=== PATIENT | female | born 1975 | race Two or more races ===

== ENCOUNTER 2016-03-13 19:14 | Emergency (ER) | payer MEDICAID ==
[2016-03-13] MEDS ORDERED: MAALOX/LIDO2%VISC/SIMETHICONE 40 ML BOT ONE (21:43)
[2016-03-13] MEDS ORDERED: SUCRALFATE 1 G/10 ML DOSE ONE (22:07)
[2016-03-13] MEDS ORDERED: MAGNESIUM HYDROXIDE 30 ML UDCUP ONE (22:08)
[2016-03-13] MEDS ORDERED: KETOROLAC TROMETHAMINE 60 MG/2 ML VIAL ONE (22:25)
== END 2016-03-13 22:43 | disposition home or self-care (01) ==
LOC: ED 19:14
DX: R07.89 Other chest pain (principal); K29.70 Gastritis, unspecified, without bleeding; K22.4 Dyskinesia of esophagus; F41.9 Anxiety disorder, unspecified
CPT/HCPCS: 99283 ×2; 96372; A9270 ×3; J1885

== ENCOUNTER 2016-05-01 13:54 | Emergency (ER) | payer MEDICAID ==
[2016-05-01 15:29] LABS: ABSOLUTE NEUTROPHIL COUNT 5.8 K/mm3 (1.8-7.7); BASO # 0.1 K/mm3 (0.0-0.2); BASO % 0.8 % (0.2-1.0); EOS # 0.1 (0.0-0.5); EOS % 1.3 % (0.9-2.9); HEMOGLOBIN 12.2 gm/l (12.0-16.0); IMM NEUT% 0.2 % (0-1); LYMPH # 1.7 (1.0-4.8); LYMPH % 20.2 % (15-45); MEAN CELL VOLUME 82.6 fl (81.0-99.0); MEAN CORPUSCULAR HEMOGLOBIN 27.2 pg (27.0-31.0); MEAN PLATELET VOLUME 9.7 fl (7.4-10.4); MONO # 0.7 (0.0-0.8); MONO % 8.5 % (4-12); PLATELET COUNT 342 K/mm3 (130-400)
[2016-05-01 15:41] LABS: SPECIFIC GRAVITY 1.015 (1.001-1.030); URINE BILIRUBIN NEGATIVE (NEGATIVE); URINE BLOOD 2+ (NEGATIVE); URINE GLUCOSE (UA) NEGATIVE (NEGATIVE); URINE LEUKOCYTE ESTERASE NEGATIVE (NEGATIVE); URINE NITRITE NEGATIVE (NEGATIVE); URINE PROTEIN NEGATIVE (NEGATIVE); URINE UROBILINOGEN NORMAL (0-1 mg/dl)
[2016-05-01 15:42] LABS: URINE APPEARANCE CLEAR; URINE COLOR YELLOW
[2016-05-01 15:52] LABS: URINE BACTERIA 0; URINE EPITHELIAL CELLS FEW /hpf; URINE WBC 0-1 /hpf
--- NOTE | 2016-05-01 16:22 | US ---
Clinical History: Pelvic pain for one week with bleeding. Comparison: None Findings: Multiple grayscale, color-flow and duplex Doppler images during transabdominal and transvaginal pelvic ultrasound are obtained. An early intrauterine is identified. Mean sac diameter is 1.5 cm, for gestational age of 5 weeks and 5 days. No pole or yolk sac is identified. Mean gestational age is 5 weeks and 5 days. Estimated date of delivery is 12/27/2016. heart tones are not identified at this time. A normal amount of amniotic fluid is present. It is too early to comment upon placental location or evidence of previa. There is moderate size subchorionic hemorrhage right and inferior to the gestational sac measuring 4.5 x 2 x 4.5 cm. Additionally a probable fibroid is noted along the right posterior uterus measuring 3.6 x 3.2 x 2.7 cm. Right ovary measures 4.4 x 2.3 x 2.7 cm with blood flow. Left ovary measures 2.5 x 1.3 x 1.3 cm with blood flow. Pelvic survey reveals no gross abnormalities. Impression: Gestational sac is identified without evidence of pole. Findings may relate to very early though blighted ovum is possible. Gestational hemorrhage and other findings as above. Findings were called to Dr. Soto at approximately 1618 hours on 05/01/2016.
== END 2016-05-01 16:45 | disposition home or self-care (01) ==
LOC: ED 13:54
DX: O20.0 Threatened abortion (principal); O99.611 Diseases of the digestive system complicating pregnancy, first trimester; K22.4 Dyskinesia of esophagus

== ENCOUNTER 2016-05-12 23:21 | Emergency (ER) | payer MEDICAID ==
[2016-05-13] MEDS ORDERED: MISOPROSTOL 200 MCG TABLET ONE (02:19)
== END 2016-05-13 05:13 | disposition home or self-care (01) ==
LOC: ED 23:21
DX: O03.9 Complete or unspecified spontaneous abortion without complication (principal); Z3A.08 8 weeks gestation of pregnancy
CPT/HCPCS: 99284 ×2; A9270